=== PATIENT | male | born 1965 | race Caucasian/White ===

== ENCOUNTER 2021-01-20 14:50 | Emergency (ER) | payer BC, SELFPAY ==
[2021-01-20 14:52] VITALS: BP 111/67; PULSE 95; RESP 20; TEMP 38; O2SAT 95; BMI 24.3
[2021-01-20 15:05] VITALS: O2SAT 95
--- NOTE | 2021-01-20 15:16 | EDS_ITS ---
HPI History of Present Illness Chief Complaint: Cough Detail of Chief Complaint: Patient with Covid symptoms x6 days Informant: patient Narrative Narrative: Patient presents to the emergency department complaint of Covid symptoms x6 days. Patient describes a cough as well as headache and body aches and nausea. Patient at times lightheaded with ambulation. Patient was diagnosed 6 days ago at an [place] urgent care with Covid. Patient denies any chest pain. Patient's also has Covid but she was vaccinated and has milder illness. PFSH PFSH Home Medications NK 01/20/21 [History Last Taken Unknown] benzonatate [Tessalon Perles] 100 mg PO BID PRN #20 cap 01/20/21 [Rx Last Taken Unknown] Allergy/AdvReac Type Severity Reaction Status Date / Time No Known Allergies Allergy Verified 01/20/21 14:51 Social History Smoking Status: Never smoker ROS ROS ED Constitutional Constitutional ED: Reports systems reviewed and no addt'l complaints, except as documented; Denies body ache(s), change in weight or chills Eyes Eyes: Denies acute decrease in peripheral vision, change in vision, double vision or loss of vision ENT ENT ED: Reports none; Denies ear pain, lip swelling, loss taste/smell, neck pain, otalgia or sore throat Cardiovascular Cardiovascular: Reports none; Denies abdominal pain, chest pain with activity, leg edema, lightheadedness, palpitations, rapid heart rate or syncope Respiratory/Chest Respiratory/Chest: Reports none and cough; Denies change in mental status, dry cough, dyspnea, hemoptysis, shortness of breath at rest or shortness of breath with exertion Gastrointestinal Gastrointestinal: Reports none; Denies abdominal pain, change in stool character, diarrhea, hematemesis, hematochezia, melena, rectal bleeding or vomiting Genitourinary Genitourinary ED: Reports none; Denies abdominal discomfort, anuria, dysuria, genital pain or polyuria Musculoskeletal Musculoskeletal: Reports none and myalgias; Denies arthralgias, back pain, difficulty walking, extremity pain or muscle weakness Integumentary Reports none; Denies abscess or rash Neurologic Neurologic: Reports none and headache(s); Denies abnormal gait, confusion, focal weakness, frequent falls, loss of vision, numbness, paresthesias, radicular pain, vertigo or weakness Psychiatric Psychiatric: Reports systems reviewed and no addt'l complaints, except as documented and none; Denies behavioral changes, confusion, difficulty concentrating, hallucinations, suicidal ideation, tactile hallucinations or visual hallucinations Endocrine Endocrinology: Denies none, cold intolerance, excessive sweating, fatigue or heat intolerance Hematologic/Lymphatic Hematologic/Lymphatic: Reports none; Denies anemia, easy bleeding or easy bruising Allergic/Immunologic Allergic/Immunologic ED: Denies as per HPI, none, lip swelling, mouth swelling, throat swelling, tongue swelling or hives EXAM Physical Exam Const Vital Signs: 01/20/21 14:52 01/20/21 15:05 Temperature 100.4 F H Temperature Source Temporal Pulse Rate 95 Respiratory Rate 20 H Respiratory Effort Normal Non-Labored Respiratory Depth Normal Respiratory Pattern Normal Blood Pressure 111/67 Blood Pressure Mean 81 Pulse Ox 95 Oxygen Delivery Method Room Air Room Air Positive well nourished and well developed General Appearance ED: well developed and NAD HEENT Reports TM's clear and moist mucous membranes normocephalic and atraumatic; Negative for trauma or tenderness Tympanic Membrane ED: Yes TM's clear Eyes PERRL and EOMs intact bilaterally General Eye ED: Negative for pale conjunctiva or scleral icterus Neck no lymphadenopathy, supple and no JVD General: Negative for tenderness Chest Wall inspection of chest normal and palpation of chest normal Chest: Negative for tenderness Resp normal respiratory effort and clear to auscultation bilaterally Effort and Inspection: Negative for respiratory distress or pain with movement Auscultation: Negative for rhonchi, wheezes or diminished lung sounds Cardio regular rate, regular rhythm, S1 normal heart sound, S2 normal heart sound and no murmurs Peripheral Pulses: pulses 2+ throughout GI normal to inspection, nondistended, normoactive bowel sounds, soft to palpation, non-tender, non-distended and no masses Back/Spine no CVA tenderness and no thoracic nor lumbar tenderness Extremity normal to inspection General Extremety ED: Negative for edema General Extremity: Negative for edema Neuro oriented x3, CN's II-XII intact bilaterally, no sensory deficits noted and gait normal Sensorium / Orientation: awake, alert, oriented to person, oriented to place and oriented to time Motor Exam: strength 5/5 throughout and strength abnormal Psych mental status grossly normal Skin no rashes or lesions noted and no wounds MDM MDM MDM Narrative Medical decision making narrative: I discussed results with patient. I ambulated the patient in the department and his O2 sat remained around 92 to 93% the entire time. At this point he does not meet criteria for monoclonal antibody therapy. I recommended symptomatic treatment with Tylenol and will write him for Nura Chris. Patient to follow-up with his primary care physician 3 to 5 days. Patient advised to return if increased shortness of breath or hypoxemia or condition should worsen anyway. Lab Data Attestation: I reviewed the patient's lab results. Labs: Laboratory Results - last 24 hr 01/20/21 01/20/21 01/20/21 15:22 15:22 15:22 WBC 4.1 L RBC 5.01 Hgb 16.1 Hct 48.3 MCV 96.4 H MCH 32.1 H MCHC 33.3 RDW Std Deviation 43.1 RDW Coeff of Arcadio 12.2 Plt Count 104 L MPV 9.5 Immature Gran % (Auto) 0.700 Neut % (Auto) 75.4 H Lymph % (Auto) 13.5 L [place] % (Auto) 9.4 Eos % (Auto) 1.0 Baso % (Auto) 0.0 Absolute Neuts (auto) 3.1 Absolute Lymphs (auto) 0.56 L Nucleated RBC % 0 D-Dimer Quant (PE/DVT) 0.47 Sodium 139 Potassium 4.1 Chloride 102 Carbon Dioxide 29.0 Anion Gap 8 BUN 14 Creatinine 1.14 Estim Creat Clear Calc 74.94 Est GFR (MDRD) Af Amer 86 Est GFR (MDRD) Non-Af 71 BUN/Creatinine Ratio 12.3 Glucose 108 H Lactic Acid Calcium 8.2 L 01/20/21 15:22 WBC RBC Hgb Hct MCV MCH MCHC RDW Std Deviation RDW Coeff of Arcadio Plt Count MPV Immature Gran % (Auto) Neut % (Auto) Lymph % (Auto) [place] % (Auto) Eos % (Auto) Baso % (Auto) Absolute Neuts (auto) Absolute Lymphs (auto) Nucleated RBC % D-Dimer Quant (PE/DVT) Sodium Potassium Chloride Carbon Dioxide Anion Gap BUN Creatinine Estim Creat Clear Calc Est GFR (MDRD) Af Amer Est GFR (MDRD) Non-Af BUN/Creatinine Ratio Glucose Lactic Acid 1.9 Calcium Radiography Chest X-Ray - ED: 1 View Diagnostic Testing: Radiology Impression Chest X-Ray 01/20/21 15:57 IMPRESSION: Hazy airspace disease and small right upper lobe consolidation suspicious for pneumonia including atypical or viral pneumonia. at 1625 Reported and signed by: Alvaro Neff MD Electronically Signed: Alvaro Neff MD at 16:24 EDT Tel , Service support , 1 view chest x-ray obtained interpreted by myself as bilateral fluffy infiltrates consistent with Covid pneumonia. Radiology in agreement. Discharge Plan Triage Chief Complaint: Cough ED Provider: Claudia Alvarado Dx/Rx/DC Orders Clinical Impression: Pneumonia due to 2019 novel coronavirus Instructions: COVID-19: Lying in a Prone Position (Proning), Caring for Someone Who Has COVID-19 Prescriptions: New benzonatate [Tessalon Perles] 100 mg capsule 100 mg PO BID PRN (Reason: cough) Qty: 20 RF: 0 No Action NK RF: 0 Primary Care Provider: Chun Chong Referrals: Chun Chong MD [Primary Care Provider] - 5-7 Days Disposition Disposition: Home, Self Care
[2021-01-20] MEDS: 0.9% Normal Saline 1,000 ML 150 ML IV (15:40)
[2021-01-20 15:41] LABS: Absolute Lymphocyte Count 0.56 X10^3/uL (0.83-4.51); Absolute Neutrophil Count 3.1 X10^3/uL (2.0-7.7); Eosinophil# 0.04 X10^3/uL; Hematocrit 48.3 % (40-54); Hemoglobin 16.1 g/dL (13.0-16.5); Lymphocyte # 0.56 X10^3/ul (0.83-4.51); Lymphocyte % 13.5 % (19-41); Mean Corp Hgb Conc 33.3 g/dL (32-36); Mean Corpuscular Hgb 32.1 pg (27.0-32.0); Mean Corpuscular Volume 96.4 fL (80-94); Mean Platelet Vol. 9.5 fl (6.2-12.0); Monocyte# 0.39 X10^3/uL; Monocyte% 9.4 % (0-10); NRBC Flagged by Analyzer 0 % (0-5); Neutrophil # 3.12 X10^3/uL (2.7-7.7); Neutrophil % 75.4 % (47-70); POSITIVE DIFFERENTIAL YES; Platelet Count 104 K/mm3 (150-450); RBC Distribution Width CV 12.2 % (11.6-14.6); RBC Distribution Width SD 43.1 fl (35.1-43.9); Red Blood Count 5.01 M/mm3 (4.6-6.2); White Blood Count 4.1 K/mm3 (4.4-11.0)
[2021-01-20 15:45] LABS: Differential Indicated SCAN CRITERIA MET
[2021-01-20 15:56] LABS: Anion Gap 8 (5-15); BUN 14 mg/dL (7-18); BUN/Creat Ratio 12.3 RATIO (10-20); Calcium,Total 8.2 mg/dL (8.5-10.1); Chloride 102 mmol/L (98-107); Creatinine, Serum 1.14 mg/dL (0.70-1.30); EST Glomerular Filtration Rate 71 mL/min (>60); Est Glom Filt Rate - Afr Amer 86 mL/min (>60); Estimated Creatinine Clearance 74.94 ml/min; Glucose 108 mg/dL (74-106); Potassium 4.1 mmol/L (3.5-5.1); Sodium Level 139 mmol/L (136-145)
--- NOTE | 2021-01-20 15:57 | RAD_ITS ---
HISTORY: dyspnea EXAMINATION/TECHNIQUE: XR Chest 1 View: Portable upright AP chest x-ray COMPARISON: None FINDINGS: LINES/DEVICES: None. LUNGS: Hazy bibasilar airspace opacities with small consolidation right upper lobe inferiorly. MEDIASTINUM AND CARDIOVASCULAR STRUCTURES: Cardiac silhouette not enlarged. Central airways and mediastinal contour are unremarkable. BONES AND SOFT TISSUES: No acute bony abnormalities. RAD/Chest 1 View (Portable) IMPRESSION: Hazy airspace disease and small right upper lobe consolidation suspicious for pneumonia including atypical or viral pneumonia. at 1625 Reported and signed by: Alvaro Neff MD Electronically Signed: Alvaro Neff MD at 16:24 EDT Tel , Service support ,
[2021-01-20 16:08] LABS: D-Dimer Quantitative (DVT/PE) 0.47 FEU/ug/m (0.27-0.49)
[2021-01-20 16:16] LABS: Lactic Acid 1.9 mmol/L (0.4-1.9)
[2021-01-20 16:57] LABS: Anisocytosis RARE; Macrocytosis RARE; Platelet Estimate MOD DEC (ADEQ); Red Cell Morphology N CHROM NORMAL (NORM C&C)
[2021-01-20 17:23] VITALS: BP 123/66; PULSE 74; RESP 22; TEMP 37.7; O2SAT 93
[2021-01-21 13:48] LABS: Pathologist Review Reviewed
== END 2021-01-20 17:27 | disposition home or self-care (01) ==
PROVIDERS: Emergency Provider Emergency Medicine; PCP Family Medicine
DX: U07.1 COVID-19 (principal); J12.82 Pneumonia due to coronavirus disease 2019
CPT/HCPCS: 71045; 80048; 83605; 85025; 85379; 87040; 96360; 96361; 99284; J7030; A4216

== ENCOUNTER 2021-02-08 14:48 | Emergency (ER) | payer BC, SELFPAY ==
[2021-02-08 14:49] VITALS: BP 116/79; PULSE 76; RESP 15; TEMP 36.6; O2SAT 96; BMI 21.1
[2021-02-08 15:11] LABS: Absolute Lymphocyte Count 1.21 X10^3/uL (0.83-4.51); Absolute Neutrophil Count 3.3 X10^3/uL (2.0-7.7); Basophil# 0.02 X10^3/uL; Basophil% 0.4 % (0-1); Eosinophil# 0.19 X10^3/uL; Eosinophils% 3.6 % (0-5); Hematocrit 48.5 % (40-54); Hemoglobin 15.4 g/dL (13.0-16.5); Lymphocyte # 1.21 X10^3/ul (0.83-4.51); Lymphocyte % 22.7 % (19-41); Mean Corp Hgb Conc 31.8 g/dL (32-36); Mean Corpuscular Hgb 31.6 pg (27.0-32.0); Mean Corpuscular Volume 99.6 fL (80-94); Mean Platelet Vol. 9.5 fl (6.2-12.0); Monocyte# 0.61 X10^3/uL; Monocyte% 11.5 % (0-10); NRBC Flagged by Analyzer 0 % (0-5); Neutrophil # 3.28 X10^3/uL (2.7-7.7); Neutrophil % 61.6 % (47-70); Platelet Count 242 K/mm3 (150-450); RBC Distribution Width CV 13.6 % (11.6-14.6); RBC Distribution Width SD 49.6 fl (35.1-43.9); Red Blood Count 4.87 M/mm3 (4.6-6.2); White Blood Count 5.3 K/mm3 (4.4-11.0)
[2021-02-08 15:16] LABS: Blood Gas Specimen Type VEN; VBG BASE EXCESS 3 mmol/L (-1.0-3.5); VBG Bicarbonate 28 mmol/L (22-26); VBG PO2 38 mmHg (25-40); VBG SO2 69 % (50-70); VBG TCO2 30 mmol/L (23-33); VBG pH 7.37 (7.32-7.42)
[2021-02-08 15:21] LABS: Anion Gap 5 (5-15); BUN 13 mg/dL (7-18); BUN/Creat Ratio 16.2 RATIO (10-20); Calcium,Total 8.6 mg/dL (8.5-10.1); Chloride 108 mmol/L (98-107); EST Glomerular Filtration Rate 107 mL/min (>60); Est Glom Filt Rate - Afr Amer 129 mL/min (>60); Estimated Creatinine Clearance 97.97 ml/min; Glucose 104 mg/dL (74-106); Potassium 4.2 mmol/L (3.5-5.1); Sodium Level 142 mmol/L (136-145)
--- NOTE | 2021-02-08 15:23 | EKG12_ITS ---
Test Reason : SOB Blood Pressure : / mmHG Vent. Rate : 068 BPM Atrial Rate : 068 BPM P-R Int : 136 ms QRS Dur : 072 ms QT Int : 390 ms P-R-T Axes : 050 025 045 degrees QTc Int : 414 ms Normal sinus rhythm Normal ECG Confirmed by YVOANA JIN, FANNY ([id number]), supervising editor news reel RAFI LAW [id number]) on 02/11/2021 9:21:37 AM Referred By: JOY Confirmed By:RUTHY YEN MD
[2021-02-08 15:32] VITALS: O2SAT 96
--- NOTE | 2021-02-08 15:45 | RAD_ITS ---
STUDY: X-RAY CHEST REASON FOR EXAM: Male, 55 years old. Hypoxia TECHNIQUE: Single AP portable view of the chest. COMPARISON: Comparison is made with prior study dated 01/20/2021. FINDINGS: Since prior study, there has been progressive patchy infiltrates in both lungs in a preferential lateral distribution. There is no demonstrated pleural abnormality. Normal size heart. Normal mediastinum and cecelia. Normal visualized pulmonary arteries. Normal visualized aortic arch and descending thoracic aorta. Normal visualized thoracic spine. Normal visualized ribs, clavicles, and shoulders. There is no demonstrated abnormality of the visualized soft tissue structures of the upper abdomen. RAD/Chest 1 View (Portable) IMPRESSION: Progressive bilateral patchy infiltrates in the preferential lateral peripheral distribution. This is in keeping with history of Covid. Electronically Signed: Franck Petty MD at 15:57 EDT , Service support ,
--- NOTE | 2021-02-08 15:51 | ED.VIS.DYS ---
HPI History of Present Illness Chief Complaint: Shortness of Breath Narrative Narrative: 55-year-old male presenting with hypoxia from home. Patient recently diagnosed with COVID-19 about 3 weeks ago. He was initially doing okay but after follow-up he required intubation. Patient has been home since Sunday. He is on a concentrator and does have oxygen canisters. Patient states that when he is on his generator he stays on daily liters but when he walks he drops to the 70s. When he is using his O2 tanks he seems to be doing okay on 2 L. After patient's recent hospitalization he was to follow-up with Garth Mcmillan and he was sent to the ER for evaluation due to hypoxia. Patient denies any chest pain. He states he feels otherwise well other than the shortness of breath with exertion. He does have some generalized weakness which he has had since he was discharged without change. Patient states he is on Lovenox twice daily for history of DVT. He had a negative CTA of the chest for PE. The DVT apparently developed while he was bedridden on the ventilator. Patient has not had any fever since he has been home. He does still admit to a cough. 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 Home Medications NK 01/20/21 [History Last Taken Unknown] benzonatate [Tessalon Perles] 100 mg PO BID PRN #20 cap 01/20/21 [Rx Last Taken Unknown] Allergy/AdvReac Type Severity Reaction Status Date / Time No Known Allergies Allergy Verified 02/08/21 14:52 Social History Smoking Status: Never smoker ROS ROS ED Constitutional Constitutional ED: Denies chills or fever(s) Eyes Eyes: Denies blurry vision or diplopia ENT ENT ED: Denies rhinorrhea or sore throat Cardiovascular Cardiovascular: Denies chest pain or palpitations Respiratory/Chest Respiratory/Chest: Reports cough, dyspnea and dyspnea on exertion Gastrointestinal Gastrointestinal: Denies abdominal pain, nausea or vomiting Genitourinary Genitourinary ED: Denies dysuria or hematuria Musculoskeletal Musculoskeletal: Denies arthralgias, back pain, myalgias or neck pain Integumentary Denies Abrasions or rash Neurologic Neurologic: Denies headache(s) or paresthesias EXAM Physical Exam Const Vital Signs: 02/08/21 14:49 02/08/21 15:04 02/08/21 15:32 Temperature 97.8 F Temperature Source Temporal Pulse Rate 76 Respiratory Rate 15 Respiratory Effort Short of Breath Blood Pressure 116/79 Blood Pressure Mean 91 Pulse Ox 96 Oxygen Delivery Method Nasal Cannula Nasal Cannula Nasal Cannula Oxygen Flow Rate (L/min) 3 3 2 02/08/21 17:10 Temperature Temperature Source Pulse Rate 69 Respiratory Rate 18 Respiratory Effort Blood Pressure 108/65 Blood Pressure Mean 79 Pulse Ox 95 Oxygen Delivery Method Nasal Cannula Oxygen Flow Rate (L/min) 2 Positive well nourished General Appearance ED: NAD HEENT Reports moist mucous membranes atraumatic Eyes PERRL and EOMs intact bilaterally Neck no lymphadenopathy and supple Resp normal respiratory effort and clear to auscultation bilaterally Cardio regular rate and regular rhythm Extremity normal to inspection Neuro oriented x3 Sensorium / Orientation: alert, oriented to person and oriented to place Psych mental status grossly normal Thought Process: normal thought process Skin Lesions: no lesions Rashes: no rashes MDM MDM MDM Narrative Medical decision making narrative: Patient presenting with hypoxia with ambulation on his concentrator however on his home O2 canister he does well. Patient also states that when he sitting in bed on the concentrator he is doing fine as well and does not desat. I did check blood work today and his CBC and BMP are normal. AST is 61, ALT is 190. These are lower than previous. Troponin is negative. EKG is sinus rhythm at 68 bpm without signs of ischemic change on my interpretation. Chest x-ray is consistent with recent COVID-19 infection on my interpretation. Although the radiologist read this as progressive since prior to his recent admission to the hospital when he was intubated and on a ventilator. Patient is anticoagulated on Lovenox currently. He is already had Decadron and remdesivir therapy. Patient looks nontoxic and he is alert and awake. I ambulated on his baseline oxygen and he desatted to 89% and cough but did feel okay. Patient is pretty adamant about not wanting to stay in the hospital and will stay in bed using his concentrator while at rest and will use O2 canisters while ambulating. They will have the equipment checked tomorrow. They were offered admission for observation until they can get this checked but again he is very adamant about not wanting to be in the hospital. I feel this is reasonable and his is knowledgeable and I believe she is reliable in regards to follow-up if she notices any worsening. Impression: 1. History of COVID-19 pneumonitis 2. Hypoxia on home concentrator Lab Data Labs: Laboratory Results - last 24 hr 02/08/21 02/08/21 02/08/21 15:01 15:01 15:01 WBC 5.3 RBC 4.87 Hgb 15.4 Hct 48.5 MCV 99.6 H MCH 31.6 MCHC 31.8 L RDW Std Deviation 49.6 H RDW Coeff of Arcadio 13.6 Plt Count 242 MPV 9.5 Immature Gran % (Auto) 0.200 Neut % (Auto) 61.6 Lymph % (Auto) 22.7 [place] % (Auto) 11.5 H Eos % (Auto) 3.6 Baso % (Auto) 0.4 Absolute Neuts (auto) 3.3 Absolute Lymphs (auto) 1.21 Nucleated RBC % 0 Sodium 142 Potassium 4.2 Chloride 108 H Carbon Dioxide 29.0 Anion Gap 5 BUN 13 Creatinine 0.80 Estim Creat Clear Calc 97.97 Est GFR (MDRD) Af Amer 129 Est GFR (MDRD) Non-Af 107 BUN/Creatinine Ratio 16.2 Glucose 104 Calcium 8.6 Total Bilirubin 0.40 Direct Bilirubin 0.08 AST 61 H ALT 190 H Alkaline Phosphatase 58 Troponin I High Sens Total Protein 6.5 Albumin 3.0 L Globulin 3.5 02/08/21 15:01 WBC RBC Hgb Hct MCV MCH MCHC RDW Std Deviation RDW Coeff of Arcadio Plt Count MPV Immature Gran % (Auto) Neut % (Auto) Lymph % (Auto) [place] % (Auto) Eos % (Auto) Baso % (Auto) Absolute Neuts (auto) Absolute Lymphs (auto) Nucleated RBC % Sodium Potassium Chloride Carbon Dioxide Anion Gap BUN Creatinine Estim Creat Clear Calc Est GFR (MDRD) Af Amer Est GFR (MDRD) Non-Af BUN/Creatinine Ratio Glucose Calcium Total Bilirubin Direct Bilirubin AST ALT Alkaline Phosphatase Troponin I High Sens 4.8 Total Protein Albumin Globulin ABG Data ABG results: ABG 02/08/21 15:08 Specimen Type ADITYA VBG pH 7.37 VBG pO2 38 VBG HCO3 28 H VBG Total CO2 30 VBG O2 Sat (Calc) 69 VBG Base Excess 3 POC Mix VBG pCO2 Pt Tmp 49.0 Radiography Diagnostic Testing: Radiology Impression Chest X-Ray 02/08/21 15:45 IMPRESSION: Progressive bilateral patchy infiltrates in the preferential lateral peripheral distribution. This is in keeping with history of Covid. Electronically Signed: Franck Petty MD at 15:57 EDT , Service support , Discharge Plan Triage Chief Complaint: Shortness of Breath ED Provider: Paco Servin Dx/Rx/DC Orders Prescriptions: No Action NK RF: 0 benzonatate [Tessalon Perles] 100 mg capsule 100 mg PO BID PRN (Reason: cough) Qty: 20 RF: 0 Primary Care Provider: Chun Chong
[2021-02-08 15:57] VITALS: O2SAT 94
[2021-02-08 16:46] LABS: AST(SGOT) 61 U/L (15-37); Alanine Aminotransfer ALT/SGPT 190 U/L (16-61); Alkaline Phosphatase 58 U/L (45-117); Bilirubin, Direct 0.08 mg/dL (0.00-0.30); Globulin 3.5 g/dL (2.2-4.2); Protein, Total 6.5 g/dL (6.4-8.2)
[2021-02-08 16:50] LABS: Troponin-I HS 4.8 pg/mL (3.0-78.5)
[2021-02-08 17:10] VITALS: BP 108/65; PULSE 69; RESP 18; O2SAT 95
== END 2021-02-08 18:16 | disposition home or self-care (01) ==
PROVIDERS: Emergency Provider Student in an Organized Health Care Education/Training Program; PCP Family Medicine
DX: R09.02 Hypoxemia (principal); Z99.81 Dependence on supplemental oxygen; Z86.16 Personal history of COVID-19; Z86.718 Personal history of other venous thrombosis and embolism
CPT/HCPCS: 71045; 80048; 80076; 82803; 84484; 85025; 93005; 99283; A4216

== ENCOUNTER 2021-08-17 03:09 | Emergency (ER) | payer OTHER, BC, SELFPAY ==
[2021-08-17 03:10] VITALS: BP 168/88; PULSE 96; RESP 13; TEMP 36.6; O2SAT 96; BMI 25.1
--- NOTE | 2021-08-17 03:26 | EX.ED.UPPERE ---
HPI History of Present Illness Chief Complaint: Foreign Body Informant: patient Onset/Context/Timing Onset: Today (JPTA) Context: Sudden Onset Timing: Continuous Quality of Pain: - (sore) Location: L ring finger Current Severity: Mild Maximum Severity: Severe Worsened by: moving FB or finger Relieved by: remaining still Associated Symptoms Associated Symptoms: Positive for Loss of Funtion; Negative for Parasthesia and Weakness Narrative Narrative: Patient presents with a work-related injury. He was working on a machine with a drill bit, pushing down hard, and something gave way and the bit broke off, the end of it went into his left ring finger. He is right-hand dominant. The foreign body is still embedded and he was unable to get it out, having trouble moving his finger as a result. No other injuries. Tetanus Immunization: >10 years [facility] Medical History COVID-19 DVT (deep venous thrombosis) Oxygen dependent Home Medications cefadroxil 500 mg PO BID #14 cap 08/17/21 [Rx Last Taken Unknown] Allergy/AdvReac Type Severity Reaction Status Date / Time No Known Allergies Allergy Verified 08/17/21 03:14 Social History Smoking Status: Never smoker ROS ROS ED Constitutional Constitutional ED: Denies chills or fever(s) Musculoskeletal Musculoskeletal: Reports extremity pain; Denies neck pain Integumentary Reports wounds; Denies Abrasions or rash Neurologic Neurologic: Denies paresthesias or weakness EXAM Physical Exam Const Vital Signs: 08/17/21 03:10 Temperature 97.8 F Temperature Source Temporal Pulse Rate 96 Respiratory Rate 13 Blood Pressure 168/88 H Blood Pressure Mean 114 Pulse Ox 96 Oxygen Delivery Method Room Air Positive well nourished and well developed General Appearance ED: well developed and NAD Neck full ROM and supple Back/Spine normal ROM and normal to inspection Extremity Extremity Narrative: Limited range of motion of left ring finger, there is a cut off drill bit embedded within the finger from the ulnar aspect, along the PIPJ level. There is no exit wound, the end of the bit is within the finger, and appears to be dorsal/superficial to the joint itself. No active bleeding. Neurovascularly intact distally to the tip of the finger. No other injuries. Neuro oriented x3, no focal motor deficits and no sensory deficits noted Sensorium / Orientation: alert Psych mental status grossly normal and thought process normal Skin Skin Narrative: Wound where drillbit is embedded into the ulnar aspect of the left ring finger see above Rashes: no rashes MDM MDM MDM Narrative Medical decision making narrative: Initial x-rays show that the foreign body appears to be superficial/dorsal to the bone and does not involve the bone as suspected clinically. After the foreign body was removed, repeat x-ray was obtained; on my interpretation 3 view x-ray series of the left ring finger shows no residual foreign material and the bone does not appear to be injured. Clinically after removal, he has limited range of motion at the PIPJ, the extensor mechanism is intact however. He will be placed on prophylactic antibiotics, his tetanus was updated, and he is referred to [facility] for follow-up. He was given appropriate work restrictions in the meantime. Radiography Diagnostic Testing: HISTORY: injury -- ring, drill bit embedded EXAMINATION/TECHNIQUE: XR Fingers Min 2 Views: 3 views fourth digit left hand COMPARISON: None FINDINGS: 3 cm length linear metallic foreign body extending through lateral mid fourth digit, projecting alongside the dorsal aspect of distal proximal phalanx. No definite fracture or cortical disruption. Adequate alignment of osseous structures with preserved joint spaces. RAD/Finger(s) Min 2 Views IMPRESSION: Metallic foreign body partially embedded within left ring finger with no evident fracture. at 0348 Reported and signed by: Felipe Gregg MD Electronically Signed: Felipe Gregg MD at 3:46 EST Procedures Other Procedures Procedure(s): Digital block: Patient's hand was cleansed with chlorhexidine and isopropanol, followed by injecting at both sides of the dorsal aspect of the left ring finger MCP J, total of 5 cc of plain 1% lidocaine were injected, good anesthesia obtained. No complications tolerated well. Foreign body removal: After digital block was performed and the area was gently prepped with chlorhexidine, I manually rotated the drill bit in order to back it out and after breaking loose from the entry site in the skin where there was dried blood, it easily backed out which I did gently, and I did not feel any feedback that makes me suspicious it was hanging onto any part of the extensor tendon sheath. Tolerated well without complication although there is a little discomfort. No significant bleeding afterwards. Repeat x-ray shows no fracture and no residual foreign material. Discharge Plan Triage Chief Complaint: Foreign Body ED Provider: Jomar Pearce Dx/Rx/DC Orders Clinical Impression: Foreign body of left ring finger, [id number] (DTP) vaccination Instructions: ED Foreign Body, Soft Tissue (Removed) Prescriptions: New cefadroxil 500 mg capsule 500 mg PO BID Qty: 14 RF: 0 Stand Alone Forms: Work Status Form Primary Care Provider: Chun Chong Referrals: [facility]YSIC[facility]] - 1 Day for another exam (call for appt time/date) Chun Chong MD [Primary Care Provider] - Disposition Disposition: Home, Self Care
[2021-08-17] MEDS: Lidocaine 1% (20 ml mdv) 20 ML Vial 10 ML INFILT (03:47)
[2021-08-17] MEDS: Diphth,Pertuss(Acell),Tet Vac 0.5 ML Vial IM (03:47)
--- NOTE | 2021-08-17 04:14 | RAD_ITS ---
HISTORY: s/p FB removal EXAMINATION/TECHNIQUE: XR Fingers Min 2 Views: 3 views fourth digit left hand COMPARISON: Left fourth digit radiographs from one hour prior FINDINGS: SOFT TISSUES: Mild residual soft tissue swelling. No radiopaque/metallic foreign body identified. BONES/JOINTS: No acute fracture or subluxation. Normal alignment. Preservation of the joint spaces. No suspicious osseous lesion. RAD/Finger(s) Min 2 Views IMPRESSION: Successful removal of left fourth digit metallic foreign body. at 0510 Reported and signed by: Felipe Gregg MD Electronically Signed: Felipe Gregg MD at 5:09 EST ,
[2021-08-17 05:10] VITALS: BP 132/78; PULSE 74; RESP 17; O2SAT 98
== END 2021-08-17 05:16 | disposition home or self-care (01) ==
LOC: ED 04:28
PROVIDERS: Emergency Provider Emergency Medicine; PCP Family Medicine; Visit Provider Emergency Medicine
DX: S60.455A Superficial foreign body of left ring finger, initial encounter (principal); Z23 Encounter for immunization; W31.89XA Contact with other specified machinery, initial encounter; Y93.9 Activity, unspecified; Y92.9 Unspecified place or not applicable; Z86.16 Personal history of COVID-19; Z86.718 Personal history of other venous thrombosis and embolism
CPT/HCPCS: 64450; 73140; 90715; 99282